=== PATIENT | male | born 1995 | race Caucasian/White ===

== ENCOUNTER 2023-01-28 14:18 | Emergency (ER) | payer SELFPAY ==
--- NOTE | ~2023-01-28 | CT_ITS ---
EXAMINATION: CT HEAD WITHOUT CONTRAST CLINICAL INFORMATION: Headache, rule out bleed/mass. COMPARISON: None available. TECHNIQUE: Contiguous axial imaging was performed from the skull base to vertex without intravenous administration of contrast. This CT examination was performed using dose optimization techniques as appropriate, variously including the following: *Automated exposure control *Adjustment of mA and/or kV according to patient size (this includes techniques or standardized protocols for targeted exams where dose is matched to indication/reason for exam; i.e. extremities or head) *Use of iterative reconstruction technique DLP: 698 mGy-cm FINDINGS: There is no evidence of acute intracranial hemorrhage or edematous territorial infarction. No abnormal mass effect or midline shift is seen. Hernández to white matter differentiation is well preserved. No extra-axial fluid collections are identified. The ventricles are normal in size. No abnormal attenuation in the brain parenchyma. No acute calvarial fracture. Left maxillary sinus mucosal thickening. Remainder of the paranasal sinuses and mastoid air cells are well-aerated. CT/CT head/brain wo IV con IMPRESSION: No CT evidence of acute intracranial hemorrhage or edematous territorial infarction.
[2023-01-28 15:05] VITALS: BP 108/62; PULSE 61; RESP 18; TEMP 37.1; O2SAT 98; BMI 25.8
--- NOTE | 2023-01-28 15:07 | ED_ITS ---
HPI - Headache General Chief Complaint: Headache Stated Complaint: Headache Time Seen by Provider: 01/28/23 16:04 History of Present Illness HPI Narrative: patient complains of headache all over his head that started gradually several days ago and then has been slowly waxing and waning, today it is a moderate headache he rates it around the 6, there was no abrupt onset headache no trauma no fever no vision change no photophobia no nausea or vomiting no fainting or feeling faint no confusion no neck pain no numbness weakness or tingling no vision changes Related Data Previous Rx's Medication Instructions Recorded acetaminophen 500 mg tablet 1,000 mg PO QID PRN pain #30 tabs 01/28/23 ibuprofen 600 mg tablet 600 mg PO Q6H PRN pain #20 tabs 01/28/23 Allergies Allergy/AdvReac Type Severity Reaction Status Date / Time No Known Allergies Allergy Verified 01/28/23 15:09 [facility] Past Medical History Source: nursing notes reviewed Social History Social History Advance Directives: No Advance Directives Information Provided: No Physical Exam Vital Signs: Vital Signs: Last Vital Signs Temp 98.8 F 01/28/23 15:05 Pulse 61 01/28/23 15:05 Resp 18 01/28/23 15:05 BP 108/62 01/28/23 15:05 Pulse Ox 98 01/28/23 15:05 O2 Del Method Room Air 01/28/23 15:05 BMI result Body Mass Index 25.8 general appearance no distress, cooperative The eyes pupils equal round reactive to light extraocular motions are intact there is no photophobia when the light is shined in the eyes The sinuses are nontender Pharynx is clear with moist mucous membranes no redness swelling or exudate Neck is supple No respiratory distress Extremities full range of motion x4 Neuro gait and balance are are normal, interaction conversation comprehension and expression are all normal, motor is 5/5 x4, sensation intact and symmetrical, cranial nerves 2-12 intact as tested, cerebellar exam finger-to- nose is normal, heel to toe walking is normal Course Course Course Narrative: RME: 27yo M c/o ELIZABETH since Friday w/ assoc nausea and dizziness/lightheadedness w/ difficulty focusing & photophobia. Took Motrin w/o relief. ELIZABETH not maximal at onset EKG, Labs, COVID/FLU, ordered Full HPI, ROS and PE to be performed by primary ED provider. Patient has no photophobia now says he may have been nauseous a few days ago there is no nausea now, he is not dizzy and as a gradual onset headache which is mild to moderate now Head CT was negative with no evidence of tumor mass bleed or vascular abnormality Labs sent from triage had no acute abnormalities Patient remained comfortable throughout ER visit with mild headache and was discharged neurologic completely intact Medical Decision Making Lab Data MDM Lab Attestation statement: I reviewed the patient's lab results. 01/28/23 15:24 01/28/23 15:24 Labs: Lab Results 01/28/23 01/28/23 Range/Units 15:24 15:24 WBC 4.3 L (4.8-10.8) X10*3/uL RBC 4.78 (4.60-5.80) X10*6/uL Hgb 14.3 (14.0-18.0) g/dl Hct 42.3 (42.0-52.0) % MCV 88.5 (80.0-98.0) fL MCH 29.9 (27.0-33.0) pg MCHC 33.8 (31.0-36.0) g/dl RDW 13.7 (11.0-16.0) % Plt Count 201 (160-400) X10*3/uL MPV 10.2 (9.4-12.4) fL Immature Gran % (Auto) 0.7 H (0.0-0.4) % Neut % (Auto) 61.8 (45-73) % Lymph % (Auto) 29.1 (20-40) % [place] % (Auto) 6.8 (2-11) % Eos % (Auto) 0.9 (0-4) % Baso % (Auto) 0.7 (0-2) % Lymph # (Auto) 1.2 (1.2-4.9) X10*3/uL [place] # (Auto) 0.3 (0.1-1.2) X10*3/uL Eos # (Auto) 0.0 (0.0-0.4) X10*3/uL Baso # (Auto) 0.0 (0.0-0.2) X10*3/uL Abs Immat Gran (auto) 0.03 (0.00-0.03) X10*3/uL Absolute Neuts (auto) 2.6 (2.0-8.3) x10*3/uL Absolute Nucleated RBC 0.000 (0.0-0.012) X10*3/uL Nucleated RBC % (auto) 0.0 (0.0-0.2) /100WBC Sodium 141 (135-145) mmol/L Potassium 4.1 (3.3-5.1) mmol/L Chloride 107 (96-108) mmol/L Carbon Dioxide 27 (22-29) mmol/L Anion Gap 11 L (12-20) BUN 18 H (9-16) mg/dL Creatinine 1.24 (0.5-1.4) mg/dL Estim Creat Clear Calc 99.0 Estimated GFR > 60 Random Glucose 114 (60-115) mg/dL Calcium 9.2 (8.4-10.2) mg/dL Magnesium 2.0 (1.6-2.6) mg/dL Total Bilirubin 0.6 (0.0-1.0) mg/dL Direct Bilirubin 0.2 (0.0-0.5) mg/dL AST 25 (5-37) U/L ALT 28 (0-40) U/L Alkaline Phosphatase 74 (39-117) U/L Total Protein 6.8 (6.5-8.0) g/dL Albumin 4.4 (3.5-5.0) g/dL Discharge Plan Discharge Clinical Impression: Headache Patient Disposition: Home, Self-Care Additional Instructions: we are not sure what is causing the headache but it does not seem to be dangerous or worrisome The CT scan of your head did not show any tumor or bleed or abnormality and was normal Follow with your doctor as scheduled next week You can use Tylenol and or Motrin for pain relief Return any time for severe pain any worse condition or any concerns Prescriptions: New acetaminophen 500 mg tablet 1,000 mg PO QID PRN (Reason: pain) Qty: 30 0RF ibuprofen 600 mg tablet 600 mg PO Q6H PRN (Reason: pain) Qty: 20 0RF Interventions: ED Discharge Assessment Last Done: 01/28/23 18:45
--- NOTE | 2023-01-28 15:09 | ECG_ITS ---
Test Reason : DIZZY Blood Pressure : / mmHG Vent. Rate : 062 BPM Atrial Rate : 062 BPM P-R Int : 184 ms QRS Dur : 104 ms QT Int : 392 ms P-R-T Axes : 046 033 026 degrees QTc Int : 397 ms Normal sinus rhythm with sinus arrhythmia RSR' or QR pattern in V1 suggests right ventricular conduction delay Borderline ECG No previous ECGs available Referred By: Aleja Oliveira Electronically Signed By:MAYA ARANDA
[2023-01-28 15:27] LABS: MANUAL DIFF FLAG NO
[2023-01-28 15:29] LABS: Basophils Percent Auto 0.7 % (0-2); Eosinophils Percent Auto 0.9 % (0-4); Hematocrit 42.3 % (42.0-52.0); Hemoglobin 14.3 g/dl (14.0-18.0); Imm Gran Abs Auto 0.03 X10*3/uL (0.00-0.03); Imm Gran Pct Auto 0.7 % (0.0-0.4); Lymphocytes Absolute Auto 1.2 X10*3/uL (1.2-4.9); Lymphocytes Percent Auto 29.1 % (20-40); Mean Corpuscular HGB Conc 33.8 g/dl (31.0-36.0); Mean Corpuscular Hemoglobin 29.9 pg (27.0-33.0); Mean Corpuscular Volume 88.5 fL (80.0-98.0); Mean Platelet Volume 10.2 fL (9.4-12.4); Monocytes Absolute Auto 0.3 X10*3/uL (0.1-1.2); Monocytes Percent Auto 6.8 % (2-11); Neutrophils Absolute Auto 2.6 x10*3/uL (2.0-8.3); Neutrophils Percent Auto 61.8 % (45-73); Platelet Count 201 X10*3/uL (160-400); Red Blood Count 4.78 X10*6/uL (4.60-5.80); Red Cell Distribution Width 13.7 % (11.0-16.0); White Blood Count 4.3 X10*3/uL (4.8-10.8)
[2023-01-28 15:46] LABS: Alanine Aminotransferase 28 U/L (0-40); Albumin Level 4.4 g/dL (3.5-5.0); Alkaline Phosphatase 74 U/L (39-117); Anion Gap 11 (12-20); Aspartate Amino Transferase 25 U/L (5-37); Bilirubin Direct 0.2 mg/dL (0.0-0.5); Bilirubin Total 0.6 mg/dL (0.0-1.0); Blood Urea Nitrogen 18 mg/dL (9-16); Calcium 9.2 mg/dL (8.4-10.2); Carbon Dioxide 27 mmol/L (22-29); Chloride 107 mmol/L (96-108); Estimated Glomerular Filt Rate > 60; Glucose Random 114 mg/dL (60-115); Potassium 4.1 mmol/L (3.3-5.1); Sodium 141 mmol/L (135-145); Total Protein 6.8 g/dL (6.5-8.0)
[2023-01-28] MEDS: Ibuprofen 600 MG TABLET PO (18:46)
== END 2023-01-28 18:46 | disposition home or self-care (01) ==
PROVIDERS: Physician Assistant; Emergency Provider Emergency Medicine
DX: R51.9 Headache, unspecified (principal); R42 Dizziness and giddiness; R11.0 Nausea; H53.149 Visual discomfort, unspecified
CPT/HCPCS: 36415; 70450; 80048; 80076; 83735; 85025; 93005; 99284